=== PATIENT | female | born 1995 | race Caucasian/White ===

== ENCOUNTER 2018-03-19 21:58 | Emergency (ER) | payer BC, OTHER ==
[~2018-03-19 21:58] MED LIST: PRED20TA6 PO
[2018-03-19] MEDS ORDERED: diphenhydrAMINE 50 MG/ML VIAL IM ONE (22:05)
[2018-03-19] MEDS ORDERED: DEXAMETHASONE SOD 4 MG/ML VIAL IM ONE (22:05)
--- NOTE | 2018-03-19 22:07 | ER Report ---
History and Physical Time Seen By MD: 22:06 HPI/ROS CHIEF COMPLAINT: Allergic reaction HISTORY OF PRESENT ILLNESS: 22-year-old female who presents with severe itching and redness to her chest and back that began just prior to arrival. She denies difficulty breathing or abdominal pain. She states her symptoms started soon after drinking a spritzer at a [employer]. She reports a similar reaction after eating noodles several years ago. REVIEW OF SYSTEMS: Respiratory: No cough, no dyspnea. Cardiovascular: No chest pain, no palpitations. Gastrointestinal: No vomiting, no abdominal pain. Musculoskeletal: No back pain. Allergies: Coded Allergies: No Known Drug Allergies (Unverified , 12/11/16) Home Meds Active Scripts Epinephrine (EPIPEN 2-DANNA) 0.3 Mg/0.3 Ml Pen.injctr, 0.3 MG IM DIRECTED Y for ALLERGY SYMPTOMS, #1 Prov:KESHAWN WEAVER MD 03/19/18 Discontinued Scripts Prednisone (PREDNISONE) 20 Mg Tablet, 60 MG PO QDAY for 7 Days, Prov:ESTEFANÍA GUTIERREZ MD 12/11/16 Past Medical/Surgical History Negative Hx Alcohol Use: Yes Constitutional Vital Sign - Last 24 Hours 03/19/18 03/19/18 03/19/18 03/19/18 22:02 22:30 22:45 23:00 Temp 98.8 Pulse 149 106 90 Resp 22 B/P (MAP) 121/89 102/78 (86) 105/70 (82) Pulse Ox 97 98 94 93 O2 Delivery Room Air 03/19/18 03/19/18 03/19/18 03/19/18 23:15 23:30 23:45 23:54 Pulse 86 83 84 85 Resp 16 B/P (MAP) 94/59 (71) 105/75 (85) Pulse Ox 92 93 92 O2 Delivery Room Air Physical Exam General Appearance: The patient is alert, has no immediate need for airway protection and no current signs of toxicity. Eyes: Pupils equal and round no injection. Respiratory: Chest is non tender, lungs are clear to auscultation. Cardiac: regular rate and rhythm Gastrointestinal: Abdomen is soft and non tender, no masses, bowel sounds normal. Musculoskeletal: Neck: Neck is supple and non tender. Extremities have full range of motion and are non tender. Skin: Diffuse erythema to face chest, back, arms. ENT: No angioedema. DIFFERENTIAL DIAGNOSIS: After history and physical exam differential diagnosis was considered for rash including allergic reaction, dermatitis, anaphylaxis. Medical Decision Making ED Course/Re-evaluation ED Course Patient has signs of acute allergic reaction to an unknown component of her drink this evening. No signs of anaphylaxis or airway compromise. She was given Benadryl and Decadron IV and her symptoms quickly improved. She was observed in the emergency department for a short period and her symptoms continued to resolution. She states she is leaving the country for a trip to [place] soon, she was prescribed an EpiPen and instructed to use it if she develops difficulty breathing or signs of anaphylaxis. Decision to Disposition Date: March 19, 2018 Decision to Disposition Time: 23:47 Depart Departure Latest Vital Signs Vital Signs Date Time Temp Pulse Resp B/P (MAP) Pulse Ox O2 Delivery O2 Flow Rate FiO2 03/19/18 23:54 85 16 105/75 (85) 92 Room Air 03/19/18 22:02 98.8 Impression: Primary Impression: Allergic reaction Condition: Improved Disposition: HOME OR SELF-CARE New Scripts Epinephrine (EPIPEN 2-DANNA) 0.3 Mg/0.3 Ml Pen.injctr 0.3 MG IM DIRECTED Y for ALLERGY SYMPTOMS, #1 Prov: KESHAWN WEAVER MD 03/19/18 Patient Instructions: General Allergic Reaction (ED) Additional Instructions: If symptoms return take one or 2 Benadryl pills. If symptoms do not improve after the Benadryl return to the ER for further care. If you develop difficulty breathing use epinephrine as directed. Problem Qualifiers Primary Impression: Allergic reaction Encounter type: initial encounter Qualified Codes: T78.40XA - Allergy, unspecified, initial encounter KESHAWN WEAVER MD March 19, 2018 22:07
[2018-03-19] MEDS ORDERED: EPIN0.3P15 IM (23:49)
[2018-03-19 23:54] VITALS: BP 105/75
== END 2018-03-19 23:58 | disposition home or self-care (01) ==
LOC: ER 22:05
DX: T78.40XA Allergy, unspecified, initial encounter (principal)
CPT/HCPCS: 96372; 99284; J1100; J1200